=== PATIENT | male | born 1945 | race Caucasian/White ===

== ENCOUNTER 2022-07-31 12:39 | Emergency (ER) | payer OTHER ==
[~2022-07-31] VITALS: Ht 175.3 cm; Wt 85.0 kg
[2022-07-31 13:02] VITALS: BP 121/63
[2022-07-31 13:08] VITALS: BP 121/63
--- NOTE | 2022-07-31 13:08 | NUR ---
PT TO [facility]
--- NOTE | 2022-07-31 13:12 | NUR ---
TO ER BED 8
--- NOTE | 2022-07-31 13:15 | NUR ---
76/M WALKED IN C/O GENERALIZED RASH TO BODY ONSET 1WK PT IS HERE FROM [facility] FOR ER EVAL. STATES 2/10 PAIN. DENIES SOB OR THROAT TIGHTNESS. AAO4, ON ROOM AIR.
[2022-07-31] MEDS ORDERED: DEXAMETHASONE 10 MG/ML VIAL IM ONE (13:35)
[2022-07-31] MEDS ORDERED: diphenhydrAMINE 50 MG/ML VIAL IM ONE (13:35)
[2022-07-31] MEDS ORDERED: ATA25 PO (13:41)
[2022-07-31] MEDS ORDERED: HYD1C TP (13:41)
--- NOTE | 2022-07-31 13:45 | NUR ---
ADMINISTERED IM MEDS TO PATIENT. PT TOLERATED WELL. AFTER MEDICATION, PT REQUESTED TO LEAVE TO SPEAK TO HIS . PT ADVISED TO STAY HE HAS NOT BEEN GIVEN DC INSTRUCTIONS. PT INSISTED HE WILL COME BACK AND LEFT WITHOUT SIGNING PAPER DC
--- NOTE | 2022-07-31 13:49 | NUR ---
Patient discharged with v/s stable. Written and verbal after care instructions given and explained. Patient alert, oriented and verbalized understanding of instructions. Ambulatory with steady gait. All questions addressed prior to discharge. ID band removed. Patient advised to follow up with PMD. Patient educated on indication of medication including possible reaction and side effects. Opportunity to ask questions provided and answered.
== END 2022-07-31 13:49 | disposition home or self-care (01) ==
LOC: MED 12:39
DX: L20.9 Atopic dermatitis, unspecified (principal); E11.9 Type 2 diabetes mellitus without complications; I10 Essential (primary) hypertension; Z79.899 Other long term (current) drug therapy
CPT/HCPCS: 96372; 99284; J1100; J1200